=== PATIENT | male | born 1960 | race Caucasian/White ===

== ENCOUNTER 2016-07-17 06:56 | Day surgery (SDC) | payer BC ==
[2016-07-17] MEDS ORDERED: SIMETHICONE 40 MG/0.6 ML ML ONE (07:06)
[2016-07-17] MEDS ORDERED: MIDAZOLAM HCL 5 MG/5 ML VIAL ONE (07:08)
[2016-07-17] MEDS ORDERED: fentaNYL CITRATE/PF 100 MCG/2 ML AMP ONE (07:08)
[2016-07-17 11:30] VITALS: BP 112/78; PULSE 62; RESP 12
== END 2016-07-17 09:45 | disposition home or self-care (01) ==
LOC: SOR 06:56 → SMU 06:57 → SOR 09:45
PROVIDERS: ATTEND Internal Medicine
DX: Z12.11 Encounter for screening for malignant neoplasm of colon (principal); K64.8 Other hemorrhoids; I10 Essential (primary) hypertension
CPT/HCPCS: 45378; J2250; J3010; J7030